=== PATIENT | male | born 1950 | race Caucasian/White ===

== ENCOUNTER 2016-09-30 16:21 | Emergency (ER) | payer BC ==
[~2016-09-30] VITALS: Ht 177.8 cm; Wt 122.5 kg
[~2016-09-30 16:21] MED LIST: ALBUTEROL0.09 MG/A2 INH; CLARITIN10 MG PO; CLINDAMYCIN HC300 MG PO; DICLOFENAC POTA50 MG PO; HYDROCODONE BIT1 T11 PO; HYDRODIURIL25 MG PO; LEVAQUIN750 M1 PO; LISINOPRIL2.5 MG PO; NORFLEX100 MG PO; PREDNICOT10 MG PO; PREDNISONE10 MG PO; VIBRAMYCIN100 MG PO
[2016-09-30 17:39] LABS: BASO # 0.1 10*3/uL (0.0-0.1); BASO % 0.7 % (0.0-1.0); EOS # 0.5 10*3/uL (0.0-0.4); EOS % 4.2 % (1.0-4.0); HEMATOCRIT 47.4 % (42.0-52.0); HEMOGLOBIN 15.9 g/dl (14.0-18.0); IG # 0.1 10*3/uL (0.0-0.1); LYMPH # 2.5 10*3/uL (1.3-4.4); LYMPH % 21.9 % (27.0-41.0); MEAN CELL VOLUME 92.4 fl (80.0-94.0); MEAN CORPUSCULAR HGB CONC 33.5 g/dl (33.0-37.0); MEAN PLATELET VOLUME 9.4 fl (9.6-12.3); MONO # 0.9 10*3/uL (0.1-1.0); NEUT # 7.5 10*3/uL (2.3-7.9); NEUT % 64.4 % (47.0-73.0); PLATELET COUNT AUTOMATED 295 10*3/uL (130-400); RED BLOOD COUNT 5.13 10*6/uL (4.50-5.90); RED CELL DISTRI WIDTH 12.9 % (0-14.5); WHITE BLOOD COUNT 11.6 10*3/uL (4.8-10.8)
[2016-09-30 18:01] LABS: BUN 7 mg/dl (7-24); CARBON DIOXIDE 28 mmol/L (21-32); CHLORIDE 99 mmol/L (98-107); EST GLOM FILT AFRICAN AMERICAN > 60 ml/min; GLUCOSE 109 mg/dL (65-99); POTASSIUM 3.8 mmol/L (3.5-5.1); SODIUM 135 mmol/L (136-145); TROPONIN I < 0.015 ng/ml (<0.045)
[2016-09-30] MEDS ORDERED: AVPAK AZITHROM250 M1 PO (19:14)
[2016-09-30] MEDS ORDERED: PREDNISONE50 MG PO (19:14)
== END 2016-09-30 19:25 | disposition home or self-care (01) ==
LOC: ED 16:21
PROVIDERS: Emergency Medicine
DX: J44.1 Chronic obstructive pulmonary disease with (acute) exacerbation (principal); J06.9 Acute upper respiratory infection, unspecified; F17.200 Nicotine dependence, unspecified, uncomplicated; Z88.0 Allergy status to penicillin; Z88.2 Allergy status to sulfonamides

== ENCOUNTER 2018-09-27 17:50 | Inpatient (IN) | payer BC, MEDICARE ==
[~2018-09-27] VITALS: Ht 177.8 cm; Wt 138.5 kg
--- NOTE | ~2018-09-27 | EKG ---
[place], [place] ELECTROCARDIOGRAM REPORT NAME: CEDRIC GANDHI UNIT #: [id number] ROOM: 416 DOCTOR: AIRAM DRAFT REPORT BIRTHDATE: [birth year] [facility] Test Date: 2018-09-27 Test Time: 21:32:08 Pat Name: CEDRIC GANDHI Department: Room: 416 Gender: M Orientation And Mobility Specialist: Viji Ahumada : 1950 Requested By: OMAIRA CHAMBERLAIN Order Number: [id number] Reading MD: Tc Hodges MD Measurements Intervals [place] Rate: 99 P: -23 CT: 165 QRS: 10 QRSD: 90 T: 4 QT: 337 QTc: 433 Interpretive Statements Sinus rhythm Low voltage, precordial leads Baseline wander in lead(s) V1 No previous ECG available for comparison Electronically Signed On 10-25-2018 7:10:59 PDT by Tc Hodges MD CM:EKGRPT:ELECTROCARDIOGRAM REPORT [id number] OMAIRA ALEGRIA DRAFT REPORT OMAIRA CHAMBERLAIN MD
--- NOTE | ~2018-09-27 | EKG ---
[place], [place] ELECTROCARDIOGRAM REPORT NAME: CEDRIC GANDHI UNIT #: [id number] ROOM: 416 DOCTOR: AIRAM DRAFT REPORT BIRTHDATE: [birth year] [facility] Test Date: 2018-09-27 Test Time: 23:33:56 Pat Name: CEDRIC GANDHI Department: Room: 416 Gender: M Special Education Aide: Amy Calvillo : 1950 Requested By: OMAIRA CHAMBERLAIN Order Number: [id number] Reading MD: Tc Hodges MD Measurements Intervals [place] Rate: 103 P: -38 IL: 172 QRS: 19 QRSD: 94 T: 33 QT: 323 QTc: 423 Interpretive Statements Sinus tachycardia Low voltage, precordial leads ST elevation, consider inferior injury Baseline wander in lead(s) V1,V2 Electronically Signed On 10-25-2018 7:16:19 PDT by Tc Hodges MD CM:EKGRPT:ELECTROCARDIOGRAM REPORT [id number] OMAIRA ALEGRIA DRAFT REPORT OMAIRA CHAMBERLAIN MD
--- NOTE | ~2018-09-27 | EKG ---
[place], [place] ELECTROCARDIOGRAM REPORT NAME: CEDRIC GANDHI UNIT #: [id number] ROOM: 416 DOCTOR: AIRAM DRAFT REPORT BIRTHDATE: [birth year] [facility] Test Date: 2018-09-27 Test Time: 18:17:41 Pat Name: CEDRIC GANDHI Department: Room: 416 Gender: M Field Sales Representative: Viji Ahumada : 1950 Requested By: OMAIRA CHAMBERLAIN Order Number: [id number] Reading MD: Tc Hodges MD Measurements Intervals [place] Rate: 103 P: 0 NC: 160 QRS: 7 QRSD: 95 T: 21 QT: 329 QTc: 431 Interpretive Statements Sinus tachycardia Low voltage, precordial leads Baseline wander in lead(s) V1 No previous ECG available for comparison Electronically Signed On 10-25-2018 7:10:47 PDT by Tc Hodges MD CM:EKGRPT:ELECTROCARDIOGRAM REPORT [id number] OMAIRA ALEGRIA DRAFT REPORT OMAIRA CHAMBERLAIN MD
[~2018-09-27 17:50] MED LIST changes: +AVPAK AZITHROM250 M1 PO; +PREDNISONE50 MG PO
[2018-09-27 17:51] VITALS: BP 116/62
[2018-09-27 18:19] LABS: BASO # 0.1 10*3/uL (0.0-0.1); BASO % 0.7 % (0.0-1.0); EOS # 0.3 10*3/uL (0.0-0.4); EOS % 2.9 % (1.0-4.0); HEMATOCRIT 45.4 % (42.0-52.0); HEMOGLOBIN 15.5 g/dl (14.0-18.0); LYMPH # 2.3 10*3/uL (1.3-4.4); LYMPH % 23.4 % (27.0-41.0); MEAN CELL VOLUME 93.8 fl (80.0-94.0); MEAN CORPUSCULAR HGB CONC 34.1 g/dl (33.0-37.0); MEAN PLATELET VOLUME 9.7 fl (9.6-12.3); MONO # 0.8 10*3/uL (0.1-1.0); MONO % 8.5 % (3.0-9.0); NEUT # 6.3 10*3/uL (2.3-7.9); NEUT % 64.1 % (47.0-73.0); PLATELET COUNT AUTOMATED 256 10*3/uL (130-400); RED BLOOD COUNT 4.84 10*6/uL (4.50-5.90); RED CELL DISTRI WIDTH 12.5 % (0-14.5); WHITE BLOOD COUNT 9.8 10*3/uL (4.8-10.8)
[2018-09-27 18:34] LABS: ACT PARTIAL THROMBO TIME 24.9 SECONDS (20.8-31.5)
[2018-09-27 18:53] LABS: ALBUMIN 3.3 gm/dl (3.1-4.5); ALKALINE PHOSPHATASE 96 U/L (45-117); BUN 15 mg/dl (7-24); CHLORIDE 91 mmol/L (98-107); POTASSIUM 4.3 mmol/L (3.5-5.1); SGOT/AST 46 IU/L (3-35); SGPT/ALT 67 U/L (12-78); SODIUM 130 mmol/L (136-145); TOTAL PROTEIN 8.2 gm/dL (6.4-8.2)
[2018-09-27 18:54] LABS: TROPONIN I < 0.015 ng/ml (<0.045)
--- NOTE | 2018-09-27 18:56 | NUR ---
NURSE TO NURSE REPORT GIVEN TO THIS RN.PT RESTING IN ROOM AFTER BREATHING TX.FLUIDS CONTINUE TO INFUSE.
--- NOTE | 2018-09-27 20:31 | NUR ---
PER MD VERBAL ORDER,PT PROVIDED BOXED LUNCH.
[2018-09-27 20:42] VITALS: BP 103/62
[2018-09-27 20:53] VITALS: BP 124/74
--- NOTE | 2018-09-27 20:53 | NUR ---
PT HAS MULTIPLE CLOSED SCABBED AREAS PRESENT UPON ADMISSION. NONE OF THE AREAS ARE OPEN AT THIS TIME. PATIENT STATES THEY ARE [place].
--- NOTE | 2018-09-27 20:53 | NUR ---
A 68, admitted to 4E, under the services of EVERARDO Mayes MD with a diagnosis of URI, COPD EXACERBATION, PNEUMONITIS, LACTIC ACIDOSIS. Chief complaint is SHORTNESS OF BREATH. Patient arrived via stretcher from ER. Monitor applied. Initial assessment completed. Vital signs taken and recorded. EVERARDO MAYES MD notified of admission to the unit. Orders received. See assessment for past medical history, medications and allergies. Patient and/or family oriented to unit. [address] visitation policy reviewed. Clothing/patient valuable form completed. MICHI DUBOIS
--- NOTE | 2018-09-27 22:39 | NUR ---
SPOKE WITH DR THRASHER TO INFORM HIM THAT THE MED REC IS UP TO DATE.
[2018-09-28] VITALS: BP 143/55
[2018-09-28 06:17] LABS: BASO % 0.2 % (0.0-1.0); HEMATOCRIT 44.5 % (42.0-52.0); HEMOGLOBIN 14.8 g/dl (14.0-18.0); LYMPH # 0.7 10*3/uL (1.3-4.4); LYMPH % 8.2 % (27.0-41.0); MEAN CELL VOLUME 95.7 fl (80.0-94.0); MEAN CORPUSCULAR HGB 31.8 pg (27.0-31.0); MEAN CORPUSCULAR HGB CONC 33.3 g/dl (33.0-37.0); MEAN PLATELET VOLUME 10.6 fl (9.6-12.3); MONO # 0.2 10*3/uL (0.1-1.0); MONO % 2.2 % (3.0-9.0); NEUT # 7.1 10*3/uL (2.3-7.9); NEUT % 88.8 % (47.0-73.0); PLATELET COUNT AUTOMATED 248 10*3/uL (130-400); RED BLOOD COUNT 4.65 10*6/uL (4.50-5.90); RED CELL DISTRI WIDTH 12.6 % (0-14.5)
[2018-09-28 06:51] LABS: ALBUMIN 3.1 gm/dl (3.1-4.5); BUN 16 mg/dl (7-24); CHLORIDE 93 mmol/L (98-107); CHOLESTEROL 170 mg/dL (<200); CREATININE 1.05 mg/dL (0.70-1.30); PHOSPHOROUS 3.1 mg/dL (2.5-4.9); SGOT/AST 46 IU/L (3-35); SGPT/ALT 66 U/L (12-78); TRIGLYCERIDES 106 mg/dl (<150); VLDL CHOLESTEROL 21 mg/dL (6-40)
[2018-09-28 06:58] LABS: ALKALINE PHOSPHATASE 86 U/L (45-117); HDL CHOLESTEROL 39 mg/dl (40-60); LDL CHOLESTEROL 110 mg/dL (9-159); THYROID STIM HORMONE (HS) 0.482 uIU/ml (0.358-4.75); TOTAL PROTEIN 7.8 gm/dL (6.4-8.2)
[2018-09-28 07:01] LABS: POTASSIUM 5.3 mmol/L (3.5-5.1); SODIUM 130 mmol/L (136-145)
[2018-09-28 07:36] LABS: VITAMIN D, 25-HYDROXY 17.6 ng/mL (30-100)
--- NOTE | 2018-09-28 08:09 | NUR ---
24 HR AP CHECK COMPLETE
--- NOTE | 2018-09-28 09:00 | NUR ---
Regulatory Lead in to talk to patient. Patient states lives at home with his . There are 5 steps in the home. Physician: Dr. Goldman who is currently has an appt with next Tuesday [facility] Home health services: none Patient's level of ADLs: INDEPENDENT Patient has working utilities: yes DME: cane, walker, doesn't need them Follow-up physician's appointment after d/c: he prefers to make his own follow up appt after discharge Does patient want to access PORTAL?: no Discharge plan discussed with patient. He lives at home with his . He is independent in his ADLs and ambulation. Discussed home health care services and he denies any home needs at this time. When medically stable he will be discharged to home. DANUTA DAVIS
--- NOTE | 2018-09-28 09:00 | NUR ---
PT AWAKE. ASSESSMNET COMPLETE. NO PT QUESTIONS/CONCERNS AT THIS TIME. BED LOW
[2018-09-28 12:00] VITALS: BP 122/48
--- NOTE | 2018-09-28 13:16 | NUR ---
LACTIC ACID 4.7 DR NOVOA NOTIFIED AND GAVE NEW ORDERS FOR NS @ 125/HR AND REPEAT LACTIC ACID 6HRS AFTER STARTING.
[2018-09-28 13:27] LABS: CREATININE 1.43 mg/dL (0.70-1.30); POTASSIUM 5.3 mmol/L (3.5-5.1)
--- NOTE | 2018-09-28 13:30 | NUR ---
LAB CALLED CRITICAL BLOOD GLUCOSE. DR NOVOA INFORMED. ORDERS RECEIVED FOR LANTUS 20 UNITS AND NOVOLOG 10. RECHECK BLOOD SUGAR IN 2 HRS.
--- NOTE | 2018-09-28 14:47 | NUR ---
DR LY CALLED TO REVIEW PTS LABS. I EXPLAINED THAT I HAD INFORMED DR NOVOA AND RECEIVED ORDERS TO ADDRESS CRITICAL RESULTS. ORDER RECEIVED FOR BLOOD GLUCOSE MONITORING AND SLIDING SCALE COVERAGE.
--- NOTE | 2018-09-28 14:54 | NUR ---
PER DR LY DC PTS GLUCOPHAGE R/T CREATININE LEVEL
[2018-09-28 15:05] LABS: BILIRUBIN NEGATIVE (NEGATIVE); BLOOD NEGATIVE (NEGATIVE); CLARITY CLEAR (CLEAR); COLOR YELLOW (YELLOW); GLUCOSE 3+ (NEGATIVE); KETONE NEGATIVE (NEGATIVE); LEUKO ESTERASE NEGATIVE (NEGATIVE); NITRITE NEGATIVE (NEGATIVE); SPECIFIC GRAVITY <= 1.005 (1.005-1.030); UROBILINOGEN 0.2 E.U./dl (0.2-1.0)
[2018-09-28 15:14] LABS: BACTERIA TRACE; EPITHELIAL CELLS 0-2; WBC 0-2 wbc/hpf (0-5)
[2018-09-28 16:00] VITALS: BP 119/64
--- NOTE | 2018-09-28 17:11 | NUR ---
PTS BLOOD GLUCOSE CRITICAL HIGH 613. DR NOVOA INFORMED. ORDERS RECEIVED FOR NOVOLOG 10 UNITS NOW, STAT ACETONE LEVEL AND INCREASE LANTUS TO 30 UNITS DAILY. WILL REPEAT BLOOD SUGAR CHECK IN 2 HRS
--- NOTE | 2018-09-28 19:17 | NUR ---
PT LACTIC ACID CRITICAL 5.8, BLOOD SUGAR CRITICAL HIGH. STAT REFLEX ORDERED. CALLED DR NOVOA. HE SAID CALL BACK WITH GLUCOSE REFLEX RESULTS. NO NEW ORDERS
[2018-09-28 20:00] VITALS: BP 114/57
--- NOTE | 2018-09-28 20:00 | NUR ---
RESTING IN BED WATCHING TV. NO DISTRESS NOTED. RESPIRATIONS EASY. LUNGS DIMINISHED WITH FAINT EXP WHEEZES. PULSE OX 95% RA. COUGH PROD FOR WHITE, SPUTUM OBTAINED AND SENT FOR CULTURE. TRACE BLE EDEMA. OFFERED AND EDUCATED REGARDING TEDS, DECLINED. IV FLUIDS INFUSING PER ORDER. CALL LIGHT WITHIN REACH. NO VOICED COMPLAINTS
--- NOTE | 2018-09-28 20:14 | NUR ---
PTS GLUCOSE REFLEX WAS CRITICAL HIGH 564. CALLED DR NOVOA. ORDERS RECEIVED FOR 10 UNITS OF LANTUS NOW, 10 UNITS NOVOLOG NOW, REPEAT LACTIC ACID IN 4 HRS.
--- NOTE | 2018-09-28 21:49 | NUR ---
BSG CRITICAL HIGH, STAT REFLEX ORDERED
--- NOTE | 2018-09-28 22:20 | NUR ---
DR NOVOA CONTACTED AND INFORMED OF CRITICAL GLUCOSE AND LACTIC ACID. NEW ORDERS RECEIVED
[2018-09-29] VITALS: BP 108/63
--- NOTE | 2018-09-29 | NUR ---
RESTING WITH EYES CLOSED AND NO ACUTE DISTRESS NOTED. RESPIRATIONS EASY. VSS. IV FLUIDS INFUSING PER ORDER. CALL LIGHT WITHIN REACH
--- NOTE | 2018-09-29 00:11 | NUR ---
DR NOVOA AWARE OF CRITICAL LACTIC ACID, TRENDING DOWN. IVF INFUSING
--- NOTE | 2018-09-29 06:00 | NUR ---
RESTED THROUGHTOUT NIGHT WITH NO ACUTE DISTRESS NOTED. BSG 254, COVERED PER SS. LACTIC REMAINS CRITICAL (3.1) BUT TRENDING DOWN, DR NOVOA AWARE AND IVF INFUSING. CALL LIGHT WITHIN REACH. NO VOICED COMPLAINTS
[2018-09-29 06:25] LABS: ALBUMIN 3.2 gm/dl (3.1-4.5); CHLORIDE 96 mmol/L (98-107); SODIUM 132 mmol/L (136-145)
[2018-09-29 06:30] LABS: ALKALINE PHOSPHATASE 75 U/L (45-117); BUN 18 mg/dl (7-24); CREATININE 0.94 mg/dL (0.70-1.30); SGOT/AST 27 IU/L (3-35); SGPT/ALT 50 U/L (12-78); TOTAL PROTEIN 7.4 gm/dL (6.4-8.2)
[2018-09-29 06:37] LABS: BASO % 0.1 % (0.0-1.0); EOS % 0.3 % (1.0-4.0); HEMATOCRIT 42.9 % (42.0-52.0); LYMPH # 1.7 10*3/uL (1.3-4.4); LYMPH % 14.2 % (27.0-41.0); MEAN CELL VOLUME 95.8 fl (80.0-94.0); MEAN CORPUSCULAR HGB 31.3 pg (27.0-31.0); MEAN CORPUSCULAR HGB CONC 32.6 g/dl (33.0-37.0); MEAN PLATELET VOLUME 10.1 fl (9.6-12.3); MONO # 0.9 10*3/uL (0.1-1.0); MONO % 7.8 % (3.0-9.0); NEUT # 9.1 10*3/uL (2.3-7.9); NEUT % 77.2 % (47.0-73.0); PLATELET COUNT AUTOMATED 231 10*3/uL (130-400); RED BLOOD COUNT 4.48 10*6/uL (4.50-5.90); WHITE BLOOD COUNT 11.8 10*3/uL (4.8-10.8)
[2018-09-29 08:00] VITALS: BP 118/78
--- NOTE | 2018-09-29 09:00 | NUR ---
Appliance Tester in to see patient. No new needs or request at this time. He denies any home needs. When medically stable he will be discharged to home.
[2018-09-29 12:00] VITALS: BP 102/54
--- NOTE | 2018-09-29 13:09 | NUR ---
DR. LY IN TO SEE PT. ORDER TO DECREASE NS TO 80 ML/HR.
[2018-09-29 16:00] VITALS: BP 139/66
[2018-09-29 20:00] VITALS: BP 104/37
--- NOTE | 2018-09-29 20:15 | NUR ---
PT RESTING IN BED. RESP-EASY AND REGULAR. NO C/O AT THIS TIME. CALL LIGHT IN REACH. IVF INFUSING WITH NO PROBLEM. SEE SHIFT ASSESSMENT.
--- NOTE | 2018-09-29 21:35 | NUR ---
RESTING IN BED. BSG-HI, REFLUX ORDERED. TOLERATED ROUTINE MEDS. SKIN W/D. CALL LIGHT IN REACH.
--- NOTE | 2018-09-29 22:25 | NUR ---
DR. HAQUE CALLED AWARE OF CRITICAL HIGH GLUCOSE. ORDERS TAKEN AND REVIEWED. GIVEN 22UNITS INSULIN. BLOOD SUGAR 499.
[2018-09-30] VITALS: BP 122/54
--- NOTE | 2018-09-30 00:25 | NUR ---
RESTING IN BED. RESP-EASY AND REGULAR. SKIN W/D. IVF INFUSING WITH NO PROBLEM. CALL LIGHT IN REACH. SEE SHIFT ASSESSMENT.
--- NOTE | 2018-09-30 02:40 | NUR ---
24 HR chart check completed.
--- NOTE | 2018-09-30 04:00 | NUR ---
SLEEPING IN BED. RESP-EASY AND REGULAR. IVF INFUSING WITH NO PROBLEM. CALL LIGHT IN REACH.
--- NOTE | 2018-09-30 05:30 | NUR ---
PT RESTING IN BED. BSG-404, SEE EMAR. NO C/O AT THIS TIME. CALL LIGHT IN REACH.
[2018-09-30 08:00] VITALS: BP 142/78
--- NOTE | 2018-09-30 10:15 | NUR ---
SPOKE WITH DR NOVOA RE: PATIENT REQUESTING TO SHOWER. 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
[2018-09-30 12:00] VITALS: BP 128/82
[2018-09-30 16:00] VITALS: BP 128/86
[2018-09-30 20:00] VITALS: BP 118/70
[2018-10-01] VITALS: BP 117/61
[2018-10-01 05:46] LABS: BASO % 0.2 % (0.0-1.0); EOS % 0.2 % (1.0-4.0); HEMATOCRIT 44.1 % (42.0-52.0); HEMOGLOBIN 14.8 g/dl (14.0-18.0); LYMPH # 2.3 10*3/uL (1.3-4.4); LYMPH % 18.4 % (27.0-41.0); MEAN CELL VOLUME 97.1 fl (80.0-94.0); MEAN CORPUSCULAR HGB 32.6 pg (27.0-31.0); MEAN CORPUSCULAR HGB CONC 33.6 g/dl (33.0-37.0); MEAN PLATELET VOLUME 10.1 fl (9.6-12.3); MONO % 8.1 % (3.0-9.0); NEUT # 8.9 10*3/uL (2.3-7.9); NEUT % 71.9 % (47.0-73.0); PLATELET COUNT AUTOMATED 231 10*3/uL (130-400); RED BLOOD COUNT 4.54 10*6/uL (4.50-5.90); RED CELL DISTRI WIDTH 12.8 % (0-14.5); WHITE BLOOD COUNT 12.4 10*3/uL (4.8-10.8)
[2018-10-01 05:47] LABS: BUN 20 mg/dl (7-24); CHLORIDE 96 mmol/L (98-107); CREATININE 0.93 mg/dL (0.70-1.30); POTASSIUM 3.7 mmol/L (3.5-5.1); SODIUM 133 mmol/L (136-145)
--- NOTE | 2018-10-01 05:49 | NUR ---
24 HR CHART CHECK COMPLETED
[2018-10-01 08:00] VITALS: BP 118/68
[2018-10-01 12:00] VITALS: BP 126/56
--- NOTE | 2018-10-01 17:06 | NUR ---
Discharge instructions reviewed with patient/family. Patient receptive and verbalizes understanding. Follow-up care arranged. Written instructions given to patient/family. BEATRIZ WILDE
== END 2018-10-01 17:06 | disposition home or self-care (01) | DRG 871 ==
LOC: ED 17:50 → EDHOLD 20:15 → 4E 20:15
PROVIDERS: Emergency Medicine; Internal Medicine Nephrology; Nurse Practitioner; Student in an Organized Health Care Education/Training Program; ADMIT Internal Medicine
DX: A41.9 Sepsis, unspecified organism (principal); J18.9 Pneumonia, unspecified organism; J44.1 Chronic obstructive pulmonary disease with (acute) exacerbation; E87.2 Acidosis; E87.1 Hypo-osmolality and hyponatremia; I10 Essential (primary) hypertension; F17.200 Nicotine dependence, unspecified, uncomplicated; E53.8 Deficiency of other specified B group vitamins; E11.65 Type 2 diabetes mellitus with hyperglycemia; E55.9 Vitamin D deficiency, unspecified; E87.5 Hyperkalemia; E86.9 Volume depletion, unspecified; T50.3X5A Adverse effect of electrolytic, caloric and water-balance agents, initial encounter; T38.0X5A Adverse effect of glucocorticoids and synthetic analogues, initial encounter; E44.0 Moderate protein-calorie malnutrition; N17.9 Acute kidney failure, unspecified; J44.0 Chronic obstructive pulmonary disease with (acute) lower respiratory infection; J98.11 Atelectasis; E87.8 Other disorders of electrolyte and fluid balance, not elsewhere classified; R65.20 Severe sepsis without septic shock; Z71.6 Tobacco abuse counseling; Z88.0 Allergy status to penicillin; Z68.41 Body mass index [BMI] 40.0-44.9, adult; Y92.89 Other specified places as the place of occurrence of the external cause; Z88.2 Allergy status to sulfonamides; Z79.899 Other long term (current) drug therapy; Z79.2 Long term (current) use of antibiotics

== ENCOUNTER 2020-07-25 15:31 | Emergency (ER) | payer BC ==
[~2020-07-25] VITALS: Ht 177.8 cm; Wt 133.8 kg
[2020-07-25 16:17] LABS: BASO # 0.1 10*3/uL (0.0-0.1); BASO % 0.5 % (0.0-1.0); EOS # 0.3 10*3/uL (0.0-0.4); EOS % 3.3 % (1.0-4.0); HEMATOCRIT 45.8 % (42.0-52.0); LYMPH # 2.2 10*3/uL (1.3-4.4); LYMPH % 21.1 % (27.0-41.0); MEAN CELL VOLUME 90.3 fl (80.0-94.0); MEAN CORPUSCULAR HGB 29.4 pg (27.0-31.0); MEAN CORPUSCULAR HGB CONC 32.5 g/dl (33.0-37.0); MEAN PLATELET VOLUME 9.6 fl (9.6-12.3); MONO # 0.9 10*3/uL (0.1-1.0); MONO % 8.2 % (3.0-9.0); NEUT # 6.9 10*3/uL (2.3-7.9); NEUT % 66.4 % (47.0-73.0); PLATELET COUNT AUTOMATED 296 10*3/uL (130-400); RED BLOOD COUNT 5.07 10*6/uL (4.50-5.90); WHITE BLOOD COUNT 10.3 10*3/uL (4.8-10.8)
[2020-07-25 16:18] LABS: BILIRUBIN 2+ (Negative); BLOOD 1+ (Negative); CLARITY Turbid (Clear); GLUCOSE Trace (Negative); KETONE Trace (Negative); LEUKO ESTERASE 3+ (Negative); NITRITE Positive (Negative); SPECIFIC GRAVITY 1.015 (1.001-1.030); UROBILINOGEN 0.2 E.U./dl (0.0-1.0)
[2020-07-25 16:22] LABS: COLOR Red (Yellow)
[2020-07-25 16:23] LABS: RBC TNTC rbc/hpf (0-2)
[2020-07-25 16:27] LABS: ACT PARTIAL THROMBO TIME 27.3 SECONDS (20.0-32.1)
[2020-07-25 16:34] LABS: ALBUMIN 3.3 gm/dl (3.1-4.5); ALKALINE PHOSPHATASE 80 U/L (45-117); BUN 13 mg/dl (7-24); CHLORIDE 92 mmol/L (98-107); CREATININE 1.04 mg/dL (0.70-1.30); POTASSIUM 2.8 mmol/L (3.5-5.1); SGOT/AST 38 IU/L (3-35); SGPT/ALT 47 U/L (12-78); SODIUM 133 mmol/L (136-145); TOTAL PROTEIN 7.4 gm/dL (6.4-8.2)
== END 2020-07-25 19:03 | disposition short-term general hospital (02) ==
LOC: ED 15:31
PROVIDERS: Emergency Medicine
DX: N32.9 Bladder disorder, unspecified (principal); R31.0 Gross hematuria; E87.6 Hypokalemia; R74.02 Elevation of levels of lactic acid dehydrogenase [LDH]; E66.01 Morbid (severe) obesity due to excess calories; E11.9 Type 2 diabetes mellitus without complications; I10 Essential (primary) hypertension; J44.9 Chronic obstructive pulmonary disease, unspecified; F17.200 Nicotine dependence, unspecified, uncomplicated; Z88.0 Allergy status to penicillin; Z88.2 Allergy status to sulfonamides; Z79.899 Other long term (current) drug therapy; Z68.41 Body mass index [BMI] 40.0-44.9, adult; Z98.890 Other specified postprocedural states

== ENCOUNTER → 2021-02-09 | Outpatient (CLI) | payer BC ==
[2021-02-09 09:28] LABS: BASO # 0.1 10*3/uL (0.0-0.1); BASO % 0.6 % (0.0-1.0); EOS # 0.5 10*3/uL (0.0-0.4); EOS % 4.8 % (1.0-4.0); MEAN CELL VOLUME 88.7 fl (80.0-94.0); MEAN CORPUSCULAR HGB CONC 32.7 g/dl (33.0-37.0); MEAN PLATELET VOLUME 10.5 fl (9.6-12.3); MONO # 0.8 10*3/uL (0.1-1.0); MONO % 8.2 % (3.0-9.0); NEUT # 6.1 10*3/uL (2.3-7.9); PLATELET COUNT AUTOMATED 260 10*3/uL (130-400); RED BLOOD COUNT 5.41 10*6/uL (4.50-5.90); RED CELL DISTRI WIDTH 13.2 % (0-14.5); WHITE BLOOD COUNT 9.4 10*3/uL (4.8-10.8)
[2021-02-09 09:35] LABS: BILIRUBIN Negative (Negative); BLOOD Negative (Negative); CLARITY Clear (Clear); COLOR Yellow (Yellow); GLUCOSE 3+ (Negative); KETONE Negative (Negative); LEUKO ESTERASE Negative (Negative); NITRITE Negative (Negative); PH 5.5 (4.5-8.0); UROBILINOGEN 0.2 E.U./dl (0.0-1.0)
[2021-02-09 09:40] LABS: ALBUMIN 3.8 gm/dl (3.1-4.5); ALKALINE PHOSPHATASE 96 U/L (45-117); BUN 14 mg/dl (7-24); CHLORIDE 97 mmol/L (98-107); CREATININE 0.88 mg/dL (0.70-1.30); POTASSIUM 3.7 mmol/L (3.5-5.1); SGOT/AST 24 IU/L (3-35); SGPT/ALT 43 U/L (12-78); SODIUM 133 mmol/L (136-145); TOTAL PROTEIN 8.2 gm/dL (6.4-8.2)
[2021-02-09 09:50] LABS: RBC 0-2 rbc/hpf (0-2)
== END | disposition home or self-care (01) ==
LOC: LAB 08:48 → CT 09:00
PROVIDERS: ATTEND Urology
DX: K76.0 Fatty (change of) liver, not elsewhere classified (principal); N28.1 Cyst of kidney, acquired; R31.9 Hematuria, unspecified; N26.1 Atrophy of kidney (terminal); J98.11 Atelectasis; I70.0 Atherosclerosis of aorta; K57.30 Diverticulosis of large intestine without perforation or abscess without bleeding

== ENCOUNTER → 2024-03-21 | Outpatient (CLI) | payer BC ==
[2024-03-21 07:51] LABS: BASO # 0.1 10*3/uL (0.0-0.1); BASO % 0.8 % (0.0-1.0); EOS # 0.4 10*3/uL (0.0-0.4); EOS % 4.6 % (1.0-4.0); LYMPH # 2.4 10*3/uL (1.3-4.4); LYMPH % 26.3 % (27.0-41.0); MEAN CELL VOLUME 91.5 fl (80.0-94.0); MEAN CORPUSCULAR HGB 29.9 pg (27.0-31.0); MEAN CORPUSCULAR HGB CONC 32.6 g/dl (33.0-37.0); MEAN PLATELET VOLUME 10.1 fl (9.6-12.3); MONO # 0.7 10*3/uL (0.1-1.0); NEUT # 5.4 10*3/uL (2.3-7.9); NEUT % 59.5 % (47.0-73.0); PLATELET COUNT AUTOMATED 231 10*3/uL (130-400); RED BLOOD COUNT 5.79 10*6/uL (4.50-5.90); WHITE BLOOD COUNT 9.1 10*3/uL (4.8-10.8)
[2024-03-21 08:06] LABS: URINE CREATININE RANDOM 104.8 mg/dL
[2024-03-21 08:44] LABS: ALKALINE PHOSPHATASE 78 U/L (46-116); BUN 14 mg/dl (9-23); CHLORIDE 100 mmol/L (98-107); CHOLESTEROL 171 mg/dL (<200); FREE T4 1.33 ng/dl (0.89-1.76); LDL CHOLESTEROL 107 mg/dL (9-159); POTASSIUM 4.2 mmol/L (3.4-5.1); SGPT/ALT 22 U/L (5-49); TOTAL PROTEIN 7.8 gm/dL (6.0-8.0); TRIGLYCERIDES 169 mg/dl (<150)
[2024-03-21 09:05] LABS: VITAMIN D, 25-HYDROXY 17.1 ng/mL (30-100)
== END | disposition home or self-care (01) ==
LOC: LAB 07:27
PROVIDERS: ATTEND Internal Medicine
DX: I10 Essential (primary) hypertension (principal); E11.9 Type 2 diabetes mellitus without complications

== ENCOUNTER 2024-11-09 07:33 | Observation (INO) | payer MEDICARE, BC ==
[~2024-11-09] VITALS: Ht 177.8 cm; Wt 131.5 kg
[2024-11-09 07:39] VITALS: BP 142/90
[2024-11-09] MEDS ORDERED: Ondansetron Hydrochloride 4 MG/2 ML VIAL IV ONE (08:00)
[2024-11-09] MEDS ORDERED: SODIUM CHLORIDE 0.9% 1,000 ML IV ONE (08:00)
[2024-11-09] MEDS ORDERED: IOHEXOL 300 MG/ML 100 ML VIAL IV ONE (08:05)
[2024-11-09 08:17] LABS: BASO # 0.1 10*3/uL (0.0-0.1); BASO % 0.4 % (0.0-1.0); EOS % 0.1 % (1.0-4.0); HEMATOCRIT 46.4 % (42.0-52.0); MEAN CORPUSCULAR HGB 28.3 pg (27.0-31.0); MEAN CORPUSCULAR HGB CONC 32.1 g/dl (33.0-37.0); MONO # 0.6 10*3/uL (0.1-1.0); MONO % 4.7 % (3.0-9.0); NEUT # 11.8 10*3/uL (2.3-7.9); NEUT % 88.9 % (47.0-73.0); PLATELET COUNT AUTOMATED 425 10*3/uL (130-400); RED BLOOD COUNT 5.27 10*6/uL (4.50-5.90); RED CELL DISTRI WIDTH 13.9 % (0-14.5); WHITE BLOOD COUNT 13.3 10*3/uL (4.8-10.8)
[2024-11-09 08:40] LABS: ALKALINE PHOSPHATASE 88 U/L (46-116); BUN 18 mg/dl (9-23); CHLORIDE 101 mmol/L (98-107); LIPASE 26 U/L (12-53); POTASSIUM 3.7 mmol/L (3.4-5.1); SGPT/ALT 20 U/L (5-49); TOTAL PROTEIN 7.3 gm/dL (6.0-8.0)
[2024-11-09] MEDS ORDERED: SODIUM CHLORIDE 0.9% 1,000 ML IV SCH (08:45)
[2024-11-09] MEDS ORDERED: BENZONATATE 100 MG CAP PO ONE (08:50)
[2024-11-09] MEDS ORDERED: Dextromethorphan Hydrobromid 1 TAB TAB PO ONE (08:55)
[2024-11-09] MEDS ORDERED: HYDROmorphone Hydrochloride 1 MG/ML SYR IV ONE (10:00)
[2024-11-09] MEDS ORDERED: metroNIDAZOLE 100 ML IV ONE (10:00)
[2024-11-09] MEDS ORDERED: CIPROFLOXACIN 200 ML IV ONE (10:00)
[2024-11-09] MEDS ORDERED: ASPIRIN ADULT L81 M2 PO (10:18)
[2024-11-09] MEDS ORDERED: JARDIANCE25 MG PO (10:19)
[2024-11-09] MEDS ORDERED: LOSARTAN POTAS100 M1 PO (10:19)
[2024-11-09] MEDS ORDERED: Lopressor25 MG PO (10:19)
[2024-11-09] MEDS ORDERED: MONTELUKAST SOD10 MG PO (10:20)
[2024-11-09] MEDS ORDERED: METFORMIN HYD1000 MG PO (10:20)
[2024-11-09] MEDS ORDERED: TRULICITY4.5 MG/0.5 SQ (10:21)
[2024-11-09] MEDS ORDERED: TRELEGY ELLIPT1 EAC1 INH (10:21)
[2024-11-09] MEDS ORDERED: HYDROmorphONE Hydrochloride 0.5 MG/0.5 ML SYRINGE IV ONE ×2 (12:50→16:35)
[2024-11-09 13:21] VITALS: BP 151/71
[2024-11-09] MEDS ORDERED: Metoclopramide Hydrochloride 10 MG/2 ML VIAL IV ONE (16:25)
[2024-11-09] MEDS ORDERED: diphenhydrAMINE hydrochloride 50 MG/ML VIAL IV ONE (16:25)
[2024-11-09] MEDS ORDERED: HYDROmorphone Hydrochloride 1 MG/ML SYR IV PRN (18:40)
[2024-11-09] MEDS ORDERED: DEXTROSE 10 % IN WATER 250 ML IV PRN (18:45)
[2024-11-09 20:35] VITALS: BP 133/66
[2024-11-09] MEDS ORDERED: INSULIN REGULAR, HUMAN 1 UNIT/0.01 ML SC SCH (22:00)
[2024-11-10 00:54] VITALS: BP 142/86
[2024-11-10 04:17] VITALS: BP 116/55
[2024-11-10 09:58] VITALS: BP 129/56
[2024-11-10] MEDS ORDERED: Metoclopramide Hydrochloride 5 MG TAB PO SCH (10:00)
[2024-11-10] MEDS ORDERED: SODIUM CHLORIDE 0.9% 1,000 ML IV SCH (12:45)
[2024-11-10] MEDS ORDERED: LEVOFLOXACIN 150 ML IV SCH (13:00)
[2024-11-10 14:50] VITALS: BP 120/49
== END 2024-11-10 15:34 | disposition short-term general hospital (02) ==
LOC: ED 07:33 → EDHOLD 16:26
PROVIDERS: Internal Medicine; ADMIT Internal Medicine; ATTEND Internal Medicine
DX: A41.9 Sepsis, unspecified organism (principal); K56.609 Unspecified intestinal obstruction, unspecified as to partial versus complete obstruction; F17.200 Nicotine dependence, unspecified, uncomplicated; Z79.899 Other long term (current) drug therapy